=== PATIENT | female | born 1980 | race Caucasian/White ===

== ENCOUNTER 2023-02-17 22:26 | Emergency (ER) | payer OTHER ==
--- NOTE | 2023-02-17 23:17 | EDPHYS ---
Physician Documentation [facility] Name: Seth Good Age: 42 yrs Sex: Female : 1980 Arrival Date: 02/17/2023 Time: 22:26 Bed IW3 Private MD: ED Physician Teodoro Mao HPI: 02/17 23:02 This 42 yrs old Female presents to ER via Unassigned with complaints of sp4 Insect Bite. 23:02 This 42-year-old female presents with a left lower extremity posterior redness and what sp4 appears to be infected insect or spider bite for the past 3 days. Historical: - Allergies: 23:19 Phenergan; ha1 - PMHx: 23:19 Lupus erythematosus; Fibromyalgia; ha1 - Immunization history:: Adult Immunizations up to date. - Social history:: Smoking status: Patient denies any tobacco usage or history of. ROS: 23:12 Constitutional: Negative for fever, chills, and weight loss, Skin: Negative for injury, sp4 rash, left lower extremity posterior calf redness, and 2 infected bite 23:12 All other systems are negative. Exam: 23:12 Constitutional: This is a well developed, well nourished patient who is awake, alert, sp4 and in no acute distress. Head/Face: Normocephalic, atraumatic. Eyes: Pupils equal round and reactive to light, extra-ocular motions intact. Lids and lashes normal. Conjunctiva and sclera are not injected. Cornea within normal limits. Periorbital areas with no swelling, redness, or edema. ENT: Nares patent. No nasal discharge, no septal abnormalities noted. Tympanic membranes are normal and external auditory canals are clear. Oropharynx with no redness, swelling, or masses, exudates, or evidence of obstruction, uvula midline. Mucous membranes moist. Neck: Trachea midline, no thyromegaly or masses palpated, and no cervical lymphadenopathy. Supple, full range of motion without nuchal rigidity, or vertebral point tenderness. Chest/axilla: Normal chest wall appearance and motion. Nontender with no deformity. No lesions are appreciated. Cardiovascular: Regular rate and rhythm with a normal S1 and S2. No gallops, murmurs, or rubs. Normal PMI, no JVD. No pulse deficits. Respiratory: Lungs have equal breath sounds bilaterally, clear to auscultation and percussion. No rales, rhonchi or wheezes noted. No increased work of breathing, no retractions or nasal flaring. Abdomen/GI: Soft, non-tender, with normal bowel sounds. No distension or tympany. No guarding or rebound. No evidence of tenderness throughout. Back: No spinal tenderness. No costovertebral tenderness. Skin: Warm, dry with normal turgor. Normal color , left posterior lower extremity on the left calf to infected bites consistent with spider bites with surrounding area of cellulitis. Cellulitis is mild MS/ Extremity: Pulses equal, no cyanosis. Neurovascular intact. Full, normal range of motion. Neuro: Awake and alert, GCS 15, oriented to person, place, time, and situation. Cranial nerves II-XII grossly intact. Motor strength 5/5 in all extremities. Sensory grossly intact. Psych: Awake, alert, with orientation to person, place and time. Behavior, mood, and affect are within normal limits Vital Signs: 23:17 BP 114 / 73; Pulse 71; Resp 18 S; Pulse Ox 98% on R/A; ha1 MDM: 23:01 Patient medically screened. sp4 23:12 Differential Diagnosis Infected spider bite, infected insect bite, cellulitis, infected sp4 puncture wound . Data reviewed: vital signs, nurses notes. ED course: Patient states she had hysterectomy. Patient has history of lupus she gets steroid injections into the right knee. Otherwise no contraindications for antibiotics, will start course of Bactrim and Keflex for the next 10 days. . Administered Medications: 23:20 Drug: Trimethoprim-Sulfamethoxazole PO (160 mg-800 mg (DS) 1 tablet Route: PO; ha1 23:30 Follow up: Response: No adverse reaction ha1 23:20 Drug: Cephalexin PO 500 mg Route: PO; ha1 23:30 Follow up: Response: No adverse reaction ha1 Disposition Summary: 02/17/23 23:16 Discharge Ordered Location: Home sp4 Problem: new sp4 Symptoms: have improved sp4 Condition: Stable sp4 Diagnosis - Cellulitis of left lower limb sp4 - Infected spider bite of the left lower leg sp4 Followup: sp4 - With: Private Physician - When: 7 - 10 days - Reason: Recheck today's complaints Discharge Instructions: - Discharge Summary Sheet sp4 - Cellulitis, Adult, [id number] sp4 Prescriptions: - Cephalexin 500 mg Oral Capsule - take 1 capsule by ORAL route every 8 hours for 10 days; 30 capsule; Refills: 0, sp4 Product Selection Permitted - Bactrim DS 800-160 mg Oral Tablet - take 1 tablet by ORAL route every 12 hours for 10 days; 20 tablet; Refills: 0, sp4 Product Selection Permitted Signatures: Madeline Doyle RN RN ha1 Teodoro Mao MD MD sp4
[2023-02-17] MEDS ORDERED: SMZ./TMP. 800/160 MG TABLET ONE (23:34)
[2023-02-17] MEDS ORDERED: CEPHALEXIN 250 MG CAP ONE (23:34)
--- NOTE | 2023-02-17 23:34 | ER ---
Nurse's Notes [facility] Name: Seth Good Age: 42 yrs Sex: Female : 1980 Arrival Date: 02/17/2023 Time: 22:26 Bed IW3 Private MD: Diagnosis: Cellulitis of left lower limb;Infected spider bite of the left lower leg Presentation: 02/17 23:17 Chief complaint: Patient states: I believe I have a spider bite on my back. Coronavirus ha1 screen: Vaccine status: Patient reports being unvaccinated. Ebola Screen: No symptoms or risks identified at this time. Initial Sepsis Screen: Does the patient meet any 2 criteria? No. Patient's initial sepsis screen is negative. Does the patient have a suspected source of infection? No. Patient's initial sepsis screen is negative. Risk Assessment: Do you want to hurt yourself or someone else? Patient reports no desire to harm self or others. Onset of symptoms was February 17, 2023. 23:17 Method Of Arrival: Ambulatory ha1 23:17 Acuity: MARILOU 5 ha1 Triage Assessment: 23:19 Bite description: bite sustained to back by a spider, animal information: Appearance: ha1 appeared well, is superficial, vaccination(s) is current. General: Appears comfortable, Behavior is calm, cooperative. Pain: Complains of pain in back Pain does not radiate. Pain currently is 4 out of 10 on a pain scale. Neuro: Level of Consciousness is awake, alert, obeys commands, Oriented to person, place, time, situation. Cardiovascular: Patient's skin is warm and dry. Respiratory: Airway is patent Respiratory effort is even, unlabored, Respiratory pattern is regular, symmetrical. GI: No signs and/or symptoms were reported involving the gastrointestinal system. : No signs and/or symptoms were reported regarding the genitourinary system. Derm: Skin is pink, warm \T\ dry. Musculoskeletal: Circulation, motion, and sensation intact. Range of motion: intact in all extremities. Historical: - Allergies: 23:19 Phenergan; ha1 - PMHx: 23:19 Lupus erythematosus; Fibromyalgia; ha1 - Immunization history:: Adult Immunizations up to date. - Social history:: Smoking status: Patient denies any tobacco usage or history of. Screenin:22 [facility] ED Fall Risk Assessment (Adult) History of falling in the last 3 months, ha1 including since admission No falls in past 3 months (0 pts) Score/Fall Risk Level 0 - 2 = Low Risk Oriented to surroundings, Maintained a safe environment, Educated pt \T\ family on fall prevention, incl call for assistance when getting out of bed. Abuse screen: Denies threats or abuse. Denies injuries from another. Nutritional screening: No deficits noted. Tuberculosis screening: No symptoms or risk factors identified. Assessment: 23:31 Derm: Skin has lesions on left leg. ha1 Vital Signs: 23:17 BP 114 / 73; Pulse 71; Resp 18 S; Pulse Ox 98% on R/A; ha1 ED Course: 22:27 Patient arrived in ED. ja2 22:34 Teodoro Mao MD is Attending Physician. sp4 23:17 Arm band placed on. ha1 23:19 Triage completed. ha1 23:22 Patient has correct armband on for positive identification. ha1 23:30 No provider procedures requiring assistance completed. Patient did not have IV access ha1 during this emergency room visit. Administered Medications: 23:20 Drug: Trimethoprim-Sulfamethoxazole PO (160 mg-800 mg (DS) 1 tablet Route: PO; ha1 23:30 Follow up: Response: No adverse reaction ha1 23:20 Drug: Cephalexin PO 500 mg Route: PO; ha1 23:30 Follow up: Response: No adverse reaction ha1 Medication: 23:31 VIS not applicable for this client. ha1 Outcome: 23:16 Discharge ordered by . sp4 23:30 Discharged to home ambulatory, with family. ha1 23:30 Condition: stable 23:30 Discharge instructions given to patient, family, Instructed on discharge instructions, follow up and referral plans. medication usage, Demonstrated understanding of instructions, follow-up care, medications, Prescriptions given X 2. 23:33 Patient left the ED. ha1 Signatures: Ladan Lazaro 2 Madeline Doyle RN RN ha1 Teodoro Mao MD MD sp4 Corrections: (The following items were deleted from the chart) 23:30 23:23 Derm: Skin is intact, ha1 ha1
[2023-02-17 23:39] VITALS: BP 114/73; O2SAT 98
== END 2023-02-17 23:33 | disposition home or self-care (01) ==
LOC: ER 22:26
DX: L03.116 Cellulitis of left lower limb (principal); Z88.8 Allergy status to other drugs, medicaments and biological substances
CPT/HCPCS: 99283